=== PATIENT | female | born 1985 | race Caucasian/White ===

== ENCOUNTER → 2016-03-11 | Outpatient (REF) | payer OTHER ==
[~2016-03-11] MED LIST: ACET50TA PO; IBUP600T26 PO; PRENTAB74 PO; motrin PO; tylenol PO
== END ==
LOC: M LAB REF 17:10
PROVIDERS: ATTEND Obstetrics & Gynecology
DX: R87.612 Low grade squamous intraepithelial lesion on cytologic smear of cervix (LGSIL) (principal)

== ENCOUNTER → 2016-04-15 | Outpatient (REF) | payer MEDICAID, OTHER | LOC: M LAB REF 17:12 | PROVIDERS: ATTEND Obstetrics & Gynecology | DX: N87.0 Mild cervical dysplasia (principal) ==

== ENCOUNTER → 2016-06-24 | Outpatient (CLI) | payer OTHER ==
--- NOTE | 2016-06-24 11:16 | REP ---
Clinical: Pain. Technique: AP, lateral, bilateral oblique and sunrise views right knee . Findings: The osseous structures and joint spaces are intact and normal. There is no evidence for acute fracture or dislocation. No joint effusion is appreciated. Surrounding soft tissues are unremarkable. No subcutaneous emphysema or radiodense foreign body. Impression: No obvious acute abnormality. Signed by Dutch Roberto MD 06/24/2016 11:08 A
== END ==
LOC: M WUC 10:54
PROVIDERS: ATTEND Nurse Practitioner Family
DX: M25.561 Pain in right knee (principal)

== ENCOUNTER → 2017-04-23 | Outpatient (REF) | payer OTHER | LOC: M LAB REF 18:46 | DX: Z12.4 Encounter for screening for malignant neoplasm of cervix (principal); R87.612 Low grade squamous intraepithelial lesion on cytologic smear of cervix (LGSIL) ==

== ENCOUNTER → 2017-09-18 | Outpatient (CLI) | payer OTHER ==
[2017-09-18 11:07] LABS: ALBUMIN 3.5 GM/DL (3.2-5.2); ALBUMIN/GLOBULIN RATIO 0.97 (1.00-1.93); ALKALINE PHOSPHATASE 108 U/L (45-117); ALT/SGPT 44 U/L (12-78); ANION GAP 6 MEQ/L (8-16); AST/SGOT 27 U/L (7-37); BILIRUBIN,TOTAL 0.4 MG/DL (0.2-1.0); BLOOD UREA NITROGEN 11 MG/DL (7-18); CALCIUM LEVEL 9.2 MG/DL (8.5-10.1); CARBON DIOXIDE LEVEL 29 MEQ/L (21-32); CHLORIDE LEVEL 107 MEQ/L (98-107); CREATININE FOR GFR 0.79 MG/DL (0.55-1.30); GLOMERULAR FILTRATION RATE > 60.0 (>60); GLUCOSE, FASTING 91 MG/DL (70-100); POTASSIUM SERUM 4.3 MEQ/L (3.5-5.1); SODIUM LEVEL 142 MEQ/L (136-145); TOTAL PROTEIN 7.1 GM/DL (6.4-8.2)
== END ==
LOC: M LAB 10:13
DX: Z00.00 Encounter for general adult medical examination without abnormal findings (principal)
CPT/HCPCS: 80053

== ENCOUNTER → 2018-01-15 | Outpatient (CLI) | payer OTHER | LOC: M RAD 08:50 | DX: R10.2 Pelvic and perineal pain (principal) | CPT/HCPCS: 76856 ==

== ENCOUNTER → 2018-03-08 | Outpatient (REF) | payer OTHER ==
[~2018-03-08] MED LIST changes: -ACET50TA PO; +IBUP-1022 PO; -IBUP600T26 PO; +MAPA500T2 PO
== END ==
LOC: M LAB REF 17:56
PROVIDERS: ATTEND Advanced Practice Midwife
DX: R30.0 Dysuria (principal)

== ENCOUNTER → 2018-05-04 | Outpatient (REF) | payer OTHER ==
[2018-05-06 14:21] LABS: HPV HYBRID CAPTURE II Negative (Negative)
== END ==
LOC: M LAB REF 14:47
PROVIDERS: ATTEND Obstetrics & Gynecology
DX: Z12.4 Encounter for screening for malignant neoplasm of cervix (principal)

== ENCOUNTER 2018-09-25 18:22 | Emergency (ER) | payer OTHER ==
[~2018-09-25] VITALS: Ht 154.9 cm; Wt 79.4 kg
[2018-09-25 18:59] LABS: BASO % 0.2 % (0.0-1.0); EOS # 0.2 10^3/uL (0.0-0.50); EOS % 2.1 % (0.0-3.0); HEMATOCRIT 39.5 % (36.0-47.0); HEMOGLOBIN 13.8 g/dl (12.0-15.5); LYMPH # 2.8 10^3/uL (1.5-4.5); LYMPH % 25.2 % (24.0-44.0); MEAN CORPUSCULAR HEMOGLOBIN 31.5 pg (27.0-33.0); MEAN CORPUSCULAR HGB CONC 34.9 g/dl (32.0-36.5); MEAN CORPUSCULAR VOLUME 90.2 fl (80.0-96.0); MONO # 0.8 10^3/uL (0.0-0.8); MONO % 7.1 % (0.0-5.0); NEUTROPHILS # 7.3 10^3/uL (1.8-7.7); PLATELET COUNT, AUTOMATED 247 10^3/uL (150-450); RED BLOOD COUNT 4.38 10^6/uL (4.00-5.40); WHITE BLOOD COUNT 11.2 10^3/uL (4.0-10.0)
[2018-09-25 19:31] LABS: ALBUMIN 3.7 GM/DL (3.2-5.2); ALT/SGPT 43 U/L (12-78); BILIRUBIN,DIRECT < 0.1 MG/DL (0.0-0.2); BILIRUBIN,TOTAL 0.1 MG/DL (0.2-1.0); BLOOD UREA NITROGEN 7 MG/DL (7-18); CALCIUM LEVEL 9.9 MG/DL (8.5-10.1); CARBON DIOXIDE LEVEL 28 MEQ/L (21-32); CHLORIDE LEVEL 106 MEQ/L (98-107); CREATININE FOR GFR 0.88 MG/DL (0.55-1.30); GLOMERULAR FILTRATION RATE > 60.0 (>60); GLUCOSE, FASTING 121 MG/DL (70-100); LIPASE 148 U/L (73-393); POTASSIUM SERUM 4.3 MEQ/L (3.5-5.1); SODIUM LEVEL 141 MEQ/L (136-145); TOTAL PROTEIN 7.2 GM/DL (6.4-8.2)
[2018-09-25 19:32] LABS: HCG, SERUM QUALITATIVE NEGATIVE (NEGATIVE)
[2018-09-25] MEDS ORDERED: ISOVUE-370 76% 100ML VIAL (Q9967) As Ordered ONE (20:48)
--- NOTE | 2018-09-25 22:15 | REPVR ---
EXAM: CT Abdomen and Pelvis With Contrast EXAM DATE/TIME: 09/25/2018 9:32 PM CLINICAL HISTORY: 33 years old, female; Abdominal pain; Localized; Left lower quadrant (llq); Additional info: Llq pain R/O abscess TECHNIQUE: Imaging protocol: Axial computed tomography images of the abdomen and pelvis with intravenous contrast. Coronal and sagittal reformatted images were created and reviewed. Radiation optimization: All CT scans at this facility use at least one of these dose optimization techniques: automated exposure control; mA and/or kV adjustment per patient size (includes targeted exams where dose is matched to clinical indication); or iterative reconstruction. Contrast material: ISOVUE 370;Contrast volume: 100 ml;Contrast route: IV; COMPARISON: CT ABD PELVIS W/O CONTRAST 08/13/2014 11:21 PM FINDINGS: Liver: Again noted is hepatic parenchymal hypoattenuation which is most likely secondary to fatty infiltration. Gallbladder and bile ducts: No calcified stones. No ductal dilation. Pancreas: No ductal dilation. Spleen: No splenomegaly. Adrenals: No mass. Kidneys and ureters: No hydronephrosis. Stomach and bowel: No evidence of obstruction. Descending and sigmoid colon diverticulosis. No CT evidence of active diverticulitis. Appendix: No evidence of appendicitis. Intraperitoneal space: No free air. No significant fluid collection. Vasculature: No abdominal aortic aneurysm. Lymph nodes: No enlarged lymph nodes. Bladder: Unremarkable as visualized. Reproductive: Approximately 3.0 x 3.2 cm left ovarian cyst. Bones/joints: No acute fractures or dislocations. Soft tissues: Unremarkable. IMPRESSION: Descending and sigmoid colon diverticulosis without definite evidence of active diverticulitis. Please correlate clinically. No bowel obstruction, free intraperitoneal air/fluid or sizable inflammatory collections noted. Hepatic steatosis. Approximately 3 cm left ovarian cyst. Electronically signed by: Fransisco Goodrich On 09/25/2018 22:14:49 PM
[2018-09-25 22:35] LABS: CHLAMYDIA DNA AMPLIFICATION NEGATIVE (NEGATIVE); GC DNA AMPLIFICATION NEGATIVE (NEGATIVE)
[2018-09-25] MEDS ORDERED: CIPR-249 PO (22:57)
[2018-09-25] MEDS ORDERED: FLAG500T PO (22:57)
[2018-09-25] MEDS ORDERED: CIPROFLOXACIN 500 MG TAB PO ONE (23:00)
[2018-09-25] MEDS ORDERED: metroNIDAZOLE (FLAGYL) 500 MG TAB PO ONE (23:00)
[2018-09-25 23:03] VITALS: BP 163/93
--- NOTE | 2018-09-26 00:38 | ED PDOC ---
Post-Departure Follow-Up AT APPROXIMATELY [address] ZACARIAS RN ASKED THIS PROVIDER WHETHER THE PATIENT, WHO HAD BEEN PLACED IN DISCHARGE STATUS WAS TO BE SENT HOME WITH ANTIBIOTICS. AT THAT POINT IT WAS DETERMINED THAT PRESCRIPTIONS FOR CIPRO AND METRONIDAZOLE WHICH WERE INTENDED TO BE ADMINISTERED ONE DOSE OF EACH IN THE ED AND ONE DOSE SENT HOME (THE PATIENT HAD EXPRESSED CONCERN THAT SHE WOULD NOT BE ABLE TO FILL RX AT HER PHARMACY PRIOR TO GOING TO WORK THE FOLLOWING MORNING SINCE IT IS A THURSDAY), WERE INSTEAD ADMINISTERED TWO DOSES OF EACH MEDICATION IN THE ED (I.E. PATIENT RECEIVED CIPRO 1000MG AND METRONIDAZOLE 1000MG IN THE ED). MR. ZACARIAS CONTACTED THE PHARMACIST TO DISCUSS THE EVENT AND DETERMINE WHETHER ANY MONITORING FOR ADVERSE EVENTS WAS NECESSARY. PROVIDER WAS ADVISED NO MONITORING WAS NECESSARY AND PATIENT MAY RESUME DOSING PRESCRIBED WHEN ABLE TO FILL THE PRESCRIPTIONS THE FOLLOWING DAY. NO ADVERSE EFFECTS WERE NTOED PRIOR TO PATIENT'S DEPARTURE FROM ED. Sirena Sims PA-C Sep 26, 2018 00:38
== END 2018-09-25 23:15 | disposition home or self-care (01) ==
LOC: M ED 18:22
DX: K57.30 Diverticulosis of large intestine without perforation or abscess without bleeding (principal); R10.32 Left lower quadrant pain; G43.909 Migraine, unspecified, not intractable, without status migrainosus; K76.0 Fatty (change of) liver, not elsewhere classified; N83.292 Other ovarian cyst, left side; Z79.899 Other long term (current) drug therapy; Z88.0 Allergy status to penicillin
CPT/HCPCS: 74177; 80048; 80076; 81001; 83690; 84703; 85025; 87661; 99284; Q9967

== ENCOUNTER → 2018-10-07 | Outpatient (CLI) | payer OTHER ==
[~2018-10-07] MED LIST changes: +CIPR-249 PO; +CIPR500T3 PO; +FLAG500T PO; +MICR1TAB18 PO; +MULTCAP PO; +OMEP-221 PO
[2018-10-07 13:40] LABS: FREE T4 0.98 NG/DL (0.76-1.46); THYROID STIMULATING HORMONE 1.88 uIU/ML (0.358-3.740)
== END ==
LOC: M WUC 09:25
PROVIDERS: ATTEND Physician Assistant
DX: R53.83 Other fatigue (principal)

== ENCOUNTER → 2018-12-07 | Outpatient (REF) | payer OTHER | LOC: M LAB REF 17:07 | PROVIDERS: ATTEND Physician Assistant | DX: N39.0 Urinary tract infection, site not specified (principal) ==

== ENCOUNTER 2018-12-16 07:59 | Day surgery (SDC) | payer OTHER ==
[~2018-12-16] VITALS: Ht 157.5 cm; Wt 81.6 kg
[~2018-12-16 07:59] MED LIST changes: +LR 1,000 ML IV ONE
[2018-12-16] MEDS ORDERED: LIDOCAINE W/EPINEPHRINE 1% 20ML VIAL As Ordered ONE (09:08)
[2018-12-16] MEDS ORDERED: BUPIVACAINE/EPIN 0.5% 30 ML VIAL As Ordered ONE (09:09)
[2018-12-16] MEDS ORDERED: PROPOFOL 200 MG/20 ML VIAL As Ordered ONE (10:10)
[2018-12-16] MEDS ORDERED: SUGAMMADEX SODIUM 500 MG/5 ML VIAL (BRIDION) As Ordered ONE (10:10)
[2018-12-16] MEDS ORDERED: LIDOCAINE 2% INJ 100 MG/5 ML SDV (FOR ANES.) As Ordered ONE (10:10)
[2018-12-16] MEDS ORDERED: MIDAZOLAM INJ 2 MG/2 ML VIAL (J2250) As Ordered ONE (10:10)
[2018-12-16] MEDS ORDERED: ROCURONIUM BROMIDE 50 MG/5 ML VIAL As Ordered ONE (10:10)
[2018-12-16] MEDS ORDERED: fentaNYL 100 MCG/2 ML INJECTION (J3010) As Ordered ONE (10:10)
[2018-12-16] MEDS ORDERED: dexameTHASONE 4 MG/ML 1ML VIAL (J1100) As Ordered ONE (10:10)
[2018-12-16] MEDS ORDERED: ONDANSETRON 4MG/2ML VIAL (J2405) As Ordered ONE ×2 (10:10→11:36)
[2018-12-16] MEDS ORDERED: GLYCOPYRROLATE INJ 0.2 MG/ML 2 ML VIAL As Ordered ONE (11:10)
[2018-12-16] MEDS ORDERED: NEOSTIGMINE 10 MG/10 ML VIAL (J2710) As Ordered ONE (11:11)
--- NOTE | 2018-12-16 11:22 | RO ---
DATE OF PROCEDURE: 12/16/2018 PREOPERATIVE DIAGNOSIS: Chronic tonsillitis. POSTOPERATIVE DIAGNOSIS: Chronic tonsillitis. PROCEDURE: Tonsillectomy. SURGEON: Delvis Fonseca MD STOCK TAKER: ANESTHESIA: DESCRIPTION OF PROCEDURE: Under general anesthesia, with the patient intubated, a Burns-Vazquez mouth gag was inserted. The tonsillar area was infiltrated with lidocaine with epinephrine and Marcaine. Using cautery then, I dissected the tonsil free from its bed on both sides. The base and apex and others areas were cauterized. Minimal blood loss. The patient tolerated the procedure well and was transferred to the recovery room in excellent condition.
[2018-12-16] MEDS ORDERED: NORCO, ANEXSIA 5/325MG TABLET (HYDROcodone/ACETAMINOPHEN) PO PRN (11:45)
[2018-12-16] MEDS ORDERED: LR 1,000 ML IV SCH ×2 (11:45)
[2018-12-16] MEDS ORDERED: fentaNYL 100 MCG/2 ML INJECTION (J3010) IV PRN (11:45)
[2018-12-16] MEDS ORDERED: ONDANSETRON 4MG/2ML VIAL (J2405) IV PRN (11:45)
[2018-12-16] MEDS: oxyCODONE 5MG TAB PO PRN ×2 (12:05→12:34)
[2018-12-16 13:36] VITALS: BP 135/93
== END 2018-12-16 13:58 | disposition home or self-care (01) ==
LOC: M SDC 07:59
PROVIDERS: ATTEND Otolaryngology
DX: J35.01 Chronic tonsillitis (principal); K57.30 Diverticulosis of large intestine without perforation or abscess without bleeding; R51 Headache; Z88.0 Allergy status to penicillin; Z87.440 Personal history of urinary (tract) infections; Z79.3 Long term (current) use of hormonal contraceptives
CPT/HCPCS: 42826; 81025; 88302; J1100; J2250; J2405; J2710; J3010

== ENCOUNTER → 2018-12-24 | Outpatient (REF) | payer OTHER ==
[~2018-12-24] MED LIST changes: -LR 1,000 ML IV ONE
== END ==
LOC: M LAB REF 17:21
PROVIDERS: ATTEND Physician Assistant
DX: D22.5 Melanocytic nevi of trunk (principal)

== ENCOUNTER 2019-04-25 23:32 | Emergency (ER) | payer OTHER ==
[~2019-04-25] VITALS: Ht 154.9 cm; Wt 84.9 kg
[2019-04-26 00:23] LABS: BASO % 0.2 % (0.0-1.0); EOS # 0.1 10^3/uL (0.0-0.5); EOS % 1.1 % (0.0-3.0); HEMATOCRIT 41.8 % (36.0-47.0); HEMOGLOBIN 14.3 g/dl (12.0-15.5); LYMPH # 2.8 10^3/uL (1.5-5.0); LYMPH % 27.4 % (24.0-44.0); MEAN CORPUSCULAR HEMOGLOBIN 30.9 pg (27.0-33.0); MEAN CORPUSCULAR HGB CONC 34.2 g/dl (32.0-36.5); MEAN CORPUSCULAR VOLUME 90.3 fl (80.0-96.0); MONO # 0.8 10^3/uL (0.0-0.8); MONO % 7.7 % (0.0-5.0); NEUTROPHILS # 6.4 10^3/uL (1.5-8.5); NEUTROPHILS % 63.1 % (36.0-66.0); PLATELET COUNT, AUTOMATED 273 10^3/uL (150-450); RED BLOOD COUNT 4.63 10^6/uL (4.00-5.40); WHITE BLOOD COUNT 10.2 10^3/uL (4.0-10.0)
[2019-04-26 00:49] LABS: ALBUMIN 3.6 GM/DL (3.2-5.2); ALT/SGPT 21 U/L (12-78); BILIRUBIN,DIRECT < 0.1 MG/DL (0.0-0.2); BILIRUBIN,TOTAL 0.3 MG/DL (0.2-1.0); HCG, SERUM QUANTITATIVE 429 MIU/ML; LIPASE 106 U/L (73-393); TOTAL PROTEIN 7.4 GM/DL (6.4-8.2)
[2019-04-26] MEDS ORDERED: ONDANSETRON 4MG/2ML VIAL (J2405) IV ONE (01:15)
[2019-04-26] MEDS ORDERED: MORPHINE 4 MG/ML 1ML VIAL/SYRINGE (J2270) IV PRN (01:15)
--- NOTE | 2019-04-26 02:44 | REPVR ---
PROCEDURE INFORMATION: Exam: US First Trimester, Transabdominal Exam date and time: 04/26/2019 2:15 AM Age: 33 years old Clinical indication: complicated by abdominal or pelvic pain; Right lower quadrant; First trimester; Gestational age or lmp: Lmp 03/04/19; ; Prior surgery; Surgery date: 6+ months; Surgery type: Lt tube removed for ectopic; Additional info: Rlq pain, positive test TECHNIQUE: Imaging protocol: Real-time transabdominal obstetrical ultrasound of the maternal pelvis and a first trimester , less than 14 weeks 0 days, with image documentation. COMPARISON: No relevant prior studies available. FINDINGS: GESTATION: Gestation: No intrauterine gestational sac. MATERNAL: Uterus: The uterus measures 7.7 cm in its cephalocaudad dimension and 3.8 x 5.2 cm in its AP and lateral dimensions transabdominal. The uterus measures 7.6 cm in its cephalocaudad dimension and 4.1 x 5.2 cm in its AP and lateral dimensions transvaginal. The endometrium measures 9 mm. Cervix: Unremarkable. Right adnexa: The right ovary measures 1.6 x 2.7 x 2.4 cm and demonstrates normal blood flow. There is question of a rounded echogenic focus in the right adnexa measuring 14 mm. Left adnexa: The left ovary measures 2.8 x 3.2 x 2.2 cm and demonstrates a small follicle measuring up to 14 mm. There is left ovarian blood flow. Intraperitoneal: No significant intraperitoneal free fluid. IMPRESSION: 1. No intrauterine gestational sac is identified. Findings may reflect recent spontaneous AB. Ectopic is not excluded. Serial beta hCG levels may be of benefit for further evaluation. 2. There is a rounded echogenic area in the right adnexa measuring 14 mm. If beta hCG levels persist, this may serve as a site of potential ectopic. Electronically signed by: Emeka Gomez On 04/26/2019 02:43:34 AM
[2019-04-26] MEDS ORDERED: LARI1TAB7 PO (04:07)
[2019-04-26] MEDS ORDERED: TIZA2TAB4 PO (04:07)
[2019-04-26] MEDS ORDERED: MELO15TA28 PO (04:07)
[2019-04-26] MEDS: NS 1,000 ML IV SCH ×2 (04:12→04:16)
[2019-04-26 04:27] LABS: BLOOD UREA NITROGEN 10 MG/DL (7-18); CALCIUM LEVEL 9.5 MG/DL (8.5-10.1); CARBON DIOXIDE LEVEL 27 MEQ/L (21-32); CHLORIDE LEVEL 105 MEQ/L (98-107); CREATININE FOR GFR 0.89 MG/DL (0.55-1.30); GLOMERULAR FILTRATION RATE > 60.0 (>60); GLUCOSE, FASTING 97 MG/DL (70-100); POTASSIUM SERUM 3.8 MEQ/L (3.5-5.1); SODIUM LEVEL 138 MEQ/L (136-145)
[2019-04-26 06:37] VITALS: BP 112/68
== END 2019-04-26 06:58 | disposition home or self-care (01) ==
LOC: M ED 23:32
DX: O26.891 Other specified pregnancy related conditions, first trimester (principal); R10.9 Unspecified abdominal pain; O21.9 Vomiting of pregnancy, unspecified; O99.611 Diseases of the digestive system complicating pregnancy, first trimester; K57.90 Diverticulosis of intestine, part unspecified, without perforation or abscess without bleeding; Z3A.00 Weeks of gestation of pregnancy not specified; Z88.0 Allergy status to penicillin; Z79.899 Other long term (current) drug therapy
CPT/HCPCS: 76801; 76817; 80048; 80076; 81001; 83690; 84702; 85025; 93976; 96361; 96374; 96375; 99284; J2270; J2405

== ENCOUNTER → 2019-04-28 | Outpatient (CLI) | payer OTHER ==
[~2019-04-28] MED LIST changes: +LARI1TAB7 PO; +MELO15TA28 PO; +TIZA2TAB4 PO
[2019-04-28 10:34] LABS: HEMATOCRIT 41.8 % (36.0-47.0); MEAN CORPUSCULAR HEMOGLOBIN 31.5 pg (27.0-33.0); MEAN CORPUSCULAR HGB CONC 33.5 g/dl (32.0-36.5); MEAN CORPUSCULAR VOLUME 94.1 fl (80.0-96.0); PLATELET COUNT, AUTOMATED 255 10^3/uL (150-450); RED BLOOD COUNT 4.44 10^6/uL (4.00-5.40); WHITE BLOOD COUNT 7.5 10^3/uL (4.0-10.0)
[2019-04-28 10:43] LABS: ALBUMIN 3.5 GM/DL (3.2-5.2); ALT/SGPT 20 U/L (12-78); BILIRUBIN,TOTAL 0.3 MG/DL (0.2-1.0); BLOOD UREA NITROGEN 6 MG/DL (7-18); CALCIUM LEVEL 9.2 MG/DL (8.5-10.1); CARBON DIOXIDE LEVEL 28 MEQ/L (21-32); CHLORIDE LEVEL 110 MEQ/L (98-107); CREATININE FOR GFR 0.77 MG/DL (0.55-1.30); GLOMERULAR FILTRATION RATE > 60.0 (>60); GLUCOSE, FASTING 91 MG/DL (70-100); HCG, SERUM QUANTITATIVE 141 MIU/ML; POTASSIUM SERUM 4.5 MEQ/L (3.5-5.1); SODIUM LEVEL 139 MEQ/L (136-145)
== END ==
LOC: M PLALAB 08:36
PROVIDERS: ATTEND Obstetrics & Gynecology
DX: O26.899 Other specified pregnancy related conditions, unspecified trimester (principal); Z3A.00 Weeks of gestation of pregnancy not specified

== ENCOUNTER → 2019-04-30 | Outpatient (CLI) | payer OTHER ==
[2019-04-30 09:23] LABS: HEMATOCRIT 39.5 % (36.0-47.0); HEMOGLOBIN 13.3 g/dl (12.0-15.5); MEAN CORPUSCULAR HEMOGLOBIN 30.9 pg (27.0-33.0); MEAN CORPUSCULAR HGB CONC 33.7 g/dl (32.0-36.5); MEAN CORPUSCULAR VOLUME 91.9 fl (80.0-96.0); PLATELET COUNT, AUTOMATED 221 10^3/uL (150-450); WHITE BLOOD COUNT 7.1 10^3/uL (4.0-10.0)
[2019-04-30 09:47] LABS: ALBUMIN 3.4 GM/DL (3.2-5.2); ALT/SGPT 16 U/L (12-78); BILIRUBIN,TOTAL 0.4 MG/DL (0.2-1.0); BLOOD UREA NITROGEN 11 MG/DL (7-18); CALCIUM LEVEL 8.7 MG/DL (8.5-10.1); CARBON DIOXIDE LEVEL 29 MEQ/L (21-32); CHLORIDE LEVEL 108 MEQ/L (98-107); CREATININE FOR GFR 0.86 MG/DL (0.55-1.30); GLOMERULAR FILTRATION RATE > 60.0 (>60); GLUCOSE, FASTING 95 MG/DL (70-100); HCG, SERUM QUANTITATIVE 126 MIU/ML; POTASSIUM SERUM 3.9 MEQ/L (3.5-5.1); SODIUM LEVEL 140 MEQ/L (136-145); TOTAL PROTEIN 6.7 GM/DL (6.4-8.2)
== END ==
LOC: M LAB 08:39
PROVIDERS: ATTEND Obstetrics & Gynecology
DX: O03.4 Incomplete spontaneous abortion without complication (principal)

== ENCOUNTER 2019-05-05 18:47 | Emergency (ER) | payer OTHER ==
[~2019-05-05] VITALS: Ht 154.9 cm; Wt 81.8 kg
[2019-05-05 18:48] VITALS: BP 133/69
[2019-05-05] MEDS ORDERED: SULF1TAB93 (18:55)
[2019-05-05] MEDS ORDERED: TIZA2TA (18:55)
[2019-05-05] MEDS ORDERED: IBUP80TA (18:55)
[2019-05-05] MEDS ORDERED: LIDOCAINE 5% (LIDODERM) PATCH TD ONE (19:30)
[2019-05-05] MEDS ORDERED: ACETAMINOPHEN 500 MG TAB PO ONE (19:30)
[2019-05-05] MEDS ORDERED: **NOTE PATIENT COMMENT** MISC XX SCH (21:00)
== END 2019-05-05 20:28 | disposition home or self-care (01) ==
LOC: M ED 18:47
DX: S39.012A Strain of muscle, fascia and tendon of lower back, initial encounter (principal); X50.9XXA Other and unspecified overexertion or strenuous movements or postures, initial encounter; Y92.098 Other place in other non-institutional residence as the place of occurrence of the external cause; M54.9 Dorsalgia, unspecified; G89.29 Other chronic pain; Z88.0 Allergy status to penicillin; Z79.899 Other long term (current) drug therapy; Z79.2 Long term (current) use of antibiotics

== ENCOUNTER → 2019-07-29 | Outpatient (REF) | payer OTHER ==
[~2019-07-29] MED LIST changes: +IBUP80TA; +SULF1TAB93; +TIZA2TA; -TIZA2TAB4 PO; +TIZA2TAB6 PO
== END ==
LOC: M SFHCWAGY 17:31
PROVIDERS: ATTEND Obstetrics & Gynecology
DX: Z01.419 Encounter for gynecological examination (general) (routine) without abnormal findings (principal); Z12.4 Encounter for screening for malignant neoplasm of cervix

== ENCOUNTER → 2020-04-12 | Outpatient (REF) | payer OTHER ==
[~2020-04-12] MED LIST changes: +TIZA1TAB12 PO; -TIZA2TAB6 PO
[2020-04-12 13:41] LABS: HEMATOCRIT 40.1 % (36.0-47.0); HEMOGLOBIN 13.3 g/dl (12.0-15.5); MEAN CORPUSCULAR HEMOGLOBIN 30.8 pg (27.0-33.0); MEAN CORPUSCULAR HGB CONC 33.2 g/dl (32.0-36.5); MEAN CORPUSCULAR VOLUME 92.8 fl (80.0-96.0); PLATELET COUNT, AUTOMATED 233 10^3/uL (150-450); RED BLOOD COUNT 4.32 10^6/uL (4.00-5.40); WHITE BLOOD COUNT 9.1 10^3/uL (4.0-10.0)
[2020-04-12 15:39] LABS: HEPATITIS C VIRUS ABY INDEX < 0.0 INDEX (<0.8); HIV 1&2 SCREEN CENTAUR NEGATIVE (NEGATIVE)
== END ==
LOC: M PLALAB 11:30
PROVIDERS: ATTEND Obstetrics & Gynecology
DX: Z34.91 Encounter for supervision of normal pregnancy, unspecified, first trimester (principal)

== ENCOUNTER → 2020-05-22 | Outpatient (CLI) | payer OTHER | LOC: M PLALAB 14:57 | PROVIDERS: ATTEND Obstetrics & Gynecology | DX: Z36.89 Encounter for other specified antenatal screening (principal); Z34.82 Encounter for supervision of other normal pregnancy, second trimester ==

== ENCOUNTER 2020-06-21 12:49 | Emergency (ER) | payer OTHER ==
[~2020-06-21] VITALS: Ht 154.9 cm; Wt 84.0 kg
[~2020-06-21 12:49] MED LIST changes: +BACTDSTA; +OXYC1TAB23 PO; -SULF1TAB93
[2020-06-21] MEDS ORDERED: PRENTAB53 PO (12:57)
[2020-06-21] MEDS ORDERED: OMEP-221 (12:57)
[2020-06-21] MEDS ORDERED: NS 1,000 ML IV ONE (15:05)
[2020-06-21] MEDS ORDERED: PERCOCET 5MG/325MG TAB PO ONE (15:05)
[2020-06-21 15:35] LABS: BASO % 0.2 % (0.0-1.0); EOS # 0.1 10^3/uL (0.0-0.5); EOS % 0.4 % (0.0-3.0); HEMATOCRIT 36.5 % (36.0-47.0); HEMOGLOBIN 12.3 g/dl (12.0-15.5); LYMPH # 2.1 10^3/uL (1.5-5.0); MEAN CORPUSCULAR HEMOGLOBIN 31.2 pg (27.0-33.0); MEAN CORPUSCULAR HGB CONC 33.7 g/dl (32.0-36.5); MEAN CORPUSCULAR VOLUME 92.6 fl (80.0-96.0); MONO # 0.7 10^3/uL (0.0-0.8); MONO % 5.6 % (2.0-8.0); NEUTROPHILS # 9.6 10^3/uL (1.5-8.5); NEUTROPHILS % 76.1 % (36.0-66.0); PLATELET COUNT, AUTOMATED 230 10^3/uL (150-450); RED BLOOD COUNT 3.94 10^6/uL (4.00-5.40); WHITE BLOOD COUNT 12.6 10^3/uL (4.0-10.0)
--- NOTE | 2020-06-21 15:38 | REP ---
INDICATION: left pelvic/abd pain COMPARISON: None. TECHNIQUE: Limited transabdominal obstetrical ultrasound with color Doppler evaluation. FINDINGS: Examination demonstrates a single live intrauterine in cephalic presentation. motion is identified by technologist. Placenta is noted posterior and grade 1 without evidence for placenta previa or abruption. Amniotic fluid volume is normal. Cervix appears closed. Gestational age by LMP 18 weeks 2 days. FHR equals 160 beats per minute. IMPRESSION: No gross abnormalities appreciated. <Electronically signed by Dutch Roberto > 06/21/20 [id number]
[2020-06-21 16:03] LABS: ALT/SGPT 13 U/L (12-78); BILIRUBIN,DIRECT < 0.1 MG/DL (0.0-0.2); BILIRUBIN,TOTAL 0.3 MG/DL (0.2-1.0); BLOOD UREA NITROGEN 4 MG/DL (7-18); CALCIUM LEVEL 9.2 MG/DL (8.5-10.1); CARBON DIOXIDE LEVEL 29 MEQ/L (21-32); CHLORIDE LEVEL 106 MEQ/L (98-107); CREATININE FOR GFR 0.52 MG/DL (0.55-1.30); GLOMERULAR FILTRATION RATE > 60.0 (>60); GLUCOSE, FASTING 77 MG/DL (70-100); LIPASE 70 U/L (73-393); POTASSIUM SERUM 3.7 MEQ/L (3.5-5.1); SODIUM LEVEL 139 MEQ/L (136-145); TOTAL PROTEIN 6.5 GM/DL (6.4-8.2)
[2020-06-21 17:08] VITALS: BP 116/59
[2020-06-21 17:08] LABS: AMORPHOUS SEDIMENT SMALL (NEGATIVE); APPEARANCE, URINE CLOUDY (CLEAR); BACTERIA, URINE AUTO NEGATIVE (NEGATIVE); BILIRUBIN, URINE AUTO NEGATIVE (NEGATIVE); BLOOD, URINE BLOOD NEGATIVE (NEGATIVE); COLOR, URINE YELLOW (YELLOW); GLUCOSE, URINE (UA) AUTO NEGATIVE (NEGATIVE); KETONE, URINE AUTO NEGATIVE (NEGATIVE); LEUKOCYTE ESTERASE, URINE AUTO TRACE (NEGATIVE); MUCUS, URINE SMALL (NEGATIVE); NITRITE, URINE AUTO NEGATIVE (NEGATIVE); PROTEIN, URINE AUTO NEGATIVE (NEGATIVE); RBC, URINE AUTO 1 /HPF (0-3); SPECIFIC GRAVITY URINE AUTO 1.009 (1.002-1.035); SQUAMOUS EPITHELIAL CELL UR AU 6 /HPF (0-6); UROBILINOGEN, URINE AUTO 0.2 mg/dL (0.0-2.0); WBC, URINE AUTO 4 /HPF (0-3)
== END 2020-06-21 17:13 | disposition home or self-care (01) ==
LOC: M ED 12:49
DX: O26.892 Other specified pregnancy related conditions, second trimester (principal); O99.612 Diseases of the digestive system complicating pregnancy, second trimester; Z3A.18 18 weeks gestation of pregnancy; Z87.59 Personal history of other complications of pregnancy, childbirth and the puerperium; Z88.0 Allergy status to penicillin

== ENCOUNTER → 2020-07-05 | Outpatient (CLI) | payer OTHER ==
[~2020-07-05] MED LIST changes: +OMEP-221; +PRENTAB53 PO
--- NOTE | 2020-07-05 16:08 | REP ---
INDICATION: ANATOMY COMPARISON: 06/21/2020 TECHNIQUE: Transabdominal obstetrical ultrasound with color Doppler evaluation. FINDINGS: Examination demonstrates a single live intrauterine in cephalic presentation. motion is identified by technologist. Placenta is noted posterior and grade 1 without evidence for placenta previa or abruption. Amniotic fluid volume is normal. Cervix measures 3.4 cm in length and appears closed.. Gestational age by LMP and 1st U/S 20 weeks 2 days with NBA 11/20/2020. Gestational age by current measurements 20 weeks 2 days with NBA 11/20/2020. FHR equals 152 beats per minute. Estimated weight 353 grams. Anatomical assessment demonstrates normal structures including cranium, choroid plexus, cavum, cerebellum/posterior fossa, facial features, lungs, four-chamber heart/ventricular outflow tracts, diaphragm, stomach, cord insertion/three-vessel cord, kidneys/bladder, spine, and extremities. IMPRESSION: Single live intrauterine in cephalic presentation. Anatomical assessment is complete and normal. No gross abnormalities are identified. <Electronically signed by Dutch Roberto > 07/05/20 [id number]
== END ==
LOC: M RAD 14:48
PROVIDERS: ATTEND Obstetrics & Gynecology
DX: Z36.9 Encounter for antenatal screening, unspecified (principal); Z3A.20 20 weeks gestation of pregnancy

== ENCOUNTER → 2020-08-23 | Outpatient (CLI) | payer OTHER ==
[2020-08-23 11:04] LABS: HEMATOCRIT 36.5 % (36.0-47.0); HEMOGLOBIN 11.9 g/dl (12.0-15.5); MEAN CORPUSCULAR HEMOGLOBIN 31.2 pg (27.0-33.0); MEAN CORPUSCULAR HGB CONC 32.6 g/dl (32.0-36.5); MEAN CORPUSCULAR VOLUME 95.5 fl (80.0-96.0); PLATELET COUNT, AUTOMATED 231 10^3/uL (150-450); RED BLOOD COUNT 3.82 10^6/uL (4.00-5.40)
== END ==
LOC: M PLALAB 08:08
PROVIDERS: ATTEND Obstetrics & Gynecology
DX: Z34.82 Encounter for supervision of other normal pregnancy, second trimester (principal); Z3A.00 Weeks of gestation of pregnancy not specified

== ENCOUNTER → 2020-09-07 | Outpatient (CLI) | payer OTHER | LOC: M LAB 07:11 | PROVIDERS: ATTEND Obstetrics & Gynecology | DX: Z36.89 Encounter for other specified antenatal screening (principal) ==

== ENCOUNTER 2020-09-13 11:25 | Outpatient (CLI) | payer OTHER ==
[~2020-09-13] VITALS: Ht 154.9 cm; Wt 90.0 kg
[~2020-09-13 11:25] MED LIST changes: -OMEP-221; -OMEP-221 PO; +OMEP40CA5 PO
[2020-09-13 11:35] VITALS: BP 137/76
[2020-10-31] MEDS ORDERED: ACET-897 PO (14:27)
[2020-12-18] MEDS ORDERED: DEBL1TAB PO (14:27)
[2020-12-18] MEDS ORDERED: OMEP40CA4 PO (14:27)
== END 2020-09-13 13:25 | disposition home or self-care (01) ==
LOC: M LDO 11:25
PROVIDERS: ATTEND Obstetrics & Gynecology
DX: O9A.23 Injury, poisoning and certain other consequences of external causes complicating the puerperium (principal); S30.1XXA Contusion of abdominal wall, initial encounter; Z3A.30 30 weeks gestation of pregnancy; O36.8130 Decreased fetal movements, third trimester, not applicable or unspecified; W22.03XA Walked into furniture, initial encounter; Y92.9 Unspecified place or not applicable

== ENCOUNTER → 2020-10-24 | Outpatient (REF) | payer OTHER ==
[~2020-10-24] MED LIST changes: +OMEP-221; +OMEP-221 PO; -OMEP40CA5 PO
== END ==
LOC: M SFHCWAGY 12:52
PROVIDERS: ATTEND Obstetrics & Gynecology
DX: Z36.89 Encounter for other specified antenatal screening (principal); Z3A.36 36 weeks gestation of pregnancy

== ENCOUNTER 2020-11-01 20:32 | Inpatient (IN) | payer OTHER ==
[~2020-11-01] VITALS: Ht 154.9 cm; Wt 98.2 kg
[~2020-11-01 20:32] MED LIST changes: +ACET-897 PO; -OMEP-221
[2020-11-01] MEDS ORDERED: OXYTOCIN INJ 10 UNITS/ML VIAL (J2590) IM PRN (21:25)
[2020-11-01] MEDS ORDERED: OXYTOCIN DRIP 30 UNITS in IV 1 EA IV PRN (21:25)
[2020-11-01] MEDS ORDERED: TRANEXAMIC ACID INJection 1,000 MG in NS 100 ML IV PRN (21:25)
[2020-11-01] MEDS ORDERED: CARBOPROST TROMETHAMINE 250 MCG/ML AMP IM PRN (21:25)
[2020-11-01] MEDS ORDERED: miSOPROStol 50MCG 1/2 TABLET PO SCH (21:25)
[2020-11-01] MEDS ORDERED: OXYTOCIN DRIP 30 UNITS in IV 1 EA IV SCH (21:40)
[2020-11-01] MEDS ORDERED: LR 1,000 ML IV SCH (21:40)
[2020-11-01] MEDS ORDERED: OXYTOCIN 30 UNITS IN 0.9% NaCl 500ML IV BAG (J2590) As Ordered ONE (21:40)
--- NOTE | 2020-11-01 22:03 | HPEPDOC ---
Obstetrical History & Physical General Date of Admission Nov 01, 2020 at 20:32 History of Present Illness 35yo at 37w2d presents for IOL for GHTN. Chief Complaint: Induction of labor Information Provided By: Patient Age: 35 : 6 Livin Care Care: Good Care Dating Final EDC: Nov 20, 2020 Final EDC by: LMP EGA at Admission: 37 Past Medical History Past Obstetrical History #1: Date of Delivery: June 30, 2006 Gestation: 37 Type of Delivery: Spontaneous Vaginal Del. Sex of Infant: Female Complications: No Past Obstetrical History #2: Date of Delivery: June 30, 2012 Type of Delivery: Spontaneous Vaginal Del. Sex of Infant: Female Complications: No Past Obstetrical History #3: Date of Delivery: Nov 02, 2015 Type of Delivery: Spontaneous Vaginal Del. Sex of : Female [employer] History: Spontaneous , Ectopic , Abnormal Pap Past Medical History Medical History Sebastian disease Surgical History: Tonsilectomy, Other (Left salpingectomy and bunionectomy) Social History Marital Status: Family situation: Spouse/partner home * Smoker: non-smoker Alcohol: Denies Drugs: denies Allergies Coded Allergies: walnut (Verified Allergy, Severe, 09/13/20) Penicillins (Verified Allergy, Intermediate, rash, 09/13/20) Medications Scheduled Vit,Calc76/Iron/Folic (Prenatabs Rx Tablet) 1 Each Tablet, 1 TAB PO DAILY Miscellaneous Medications Acetaminophen (Tylenol Extra Strength) 500 Mg Tablet, 500 MG PO Omeprazole (Omeprazole) 40 Mg Capsule.dr Physical Examination Physical Examination GENERAL: Alert and oriented times three. BREAST: . ABDOMEN: Gravid and non-tender to touch. FETUS: Is vertex (VTX) by sterile vaginal examination (SVE), fetus is vertex (VTX) by Abhay. HEART RATE: Regular rate and rhythm. LUNGS: Clear to auscultation (CTA). Laboratory Data 24H LABS Laboratory Tests 2 11/01/20 21:03: Serology Scanned Report Hepatitis B Testing Pertinent Laboratoy Data Blood Type: O+ RBC Antibody Screen: Negative HIV: Negative Hepatitis B: Negative Hepatitis C: Negative Rapid Plasma Reagin: Nonreactive Rubella: Immune Chlamydia/Gonorrhea: Negative Group B Streptococcus: Negative Glucose Tolerance Test: 179 (Normal 3-hour glucose tolerance test) Anatomy Ultrasound Placenta Location: Posterior Normal Anatomy: Yes Vaginal Examination Dilation: 3 cm Effacement: 70% Station: -2 Cervical Consistency: Soft Cervical Position: Anterior Presentation: Cephalic presentation Assessment Variability: Moderate Accelerations: Positive Tocometer Contractions: Yes Frequency: irregular Assessment/Plan Assessment 35-year-old 6 para 3 at 37 weeks 2 days for induction of labor for gestational hypertension Reassuring status Plan Admit and orient. Supervisory Lifeguard and consent. Group B Streptococcus (GBS) negative. Labs and intravenous (IV) per unit protocol. Counseled on Pitocin and induction of labor (IOL). Anticipate normal spontaneous delivery (). C-S as appropriate. KELLEN BRENNAN MD. Nov 01, 2020 22:03
[2020-11-01 22:53] LABS: HEMATOCRIT 37.3 % (36.0-47.0); HEMOGLOBIN 12.5 g/dl (12.0-15.5); MEAN CORPUSCULAR HEMOGLOBIN 31.3 pg (27.0-33.0); MEAN CORPUSCULAR HGB CONC 33.5 g/dl (32.0-36.5); MEAN CORPUSCULAR VOLUME 93.3 fl (80.0-96.0); PLATELET COUNT, AUTOMATED 208 10^3/uL (150-450); WHITE BLOOD COUNT 13.9 10^3/uL (4.0-10.0)
[2020-11-01] MEDS ORDERED: FENTANYL 2MCG/ML ROPIVACAINE 0.2% IN 0.9% NACL 100ML IVBAG As Ordered ONE (23:02)
[2020-11-01 23:14] LABS: ALT/SGPT 19 U/L (12-78); BILIRUBIN,TOTAL 0.2 MG/DL (0.2-1.0); CREATININE FOR GFR 0.68 MG/DL (0.55-1.30); GLOMERULAR FILTRATION RATE > 60.0 (>60); LDH LACTATE DEHYDROGENASE 206 U/L (84-246); URIC ACID 7.5 MG/DL (2.6-6.0)
[2020-11-02] VITALS (17 sets, daily range): BP systolic 128–158; BP diastolic 66–100
[2020-11-02] MEDS ORDERED: ePHEDrine SULFATE 25 MG/5 ML(5MG/ML) SYRINGE IV PRN (00:20)
[2020-11-02] MEDS ORDERED: diphenhydrAMINE 50MG/ML VIAL (J1200) IV PRN (00:20)
[2020-11-02] MEDS ORDERED: NALOXONE INJ 0.4MG/1ML VIAL (J2310 PER 1MG) IV PRN (00:20)
[2020-11-02] MEDS ORDERED: ONDANSETRON 4MG/2ML VIAL IV PRN (00:20)
[2020-11-02] MEDS ORDERED: EPIDURAL/PCA KEYS XX PRN (00:20)
[2020-11-02] MEDS ORDERED: LACTATED RINGER'S 1000 ML IV PRN (00:20)
[2020-11-02] MEDS ORDERED: FENTANYL/ROPIVACAINE/NACL BAG 100 ML EPIDURAL SCH (00:20)
[2020-11-02] MEDS ORDERED: REFRIGERATOR IV KEYS XX PRN (00:20)
[2020-11-02] MEDS ORDERED: EPIDURAL COMMENT XX SCH (00:20)
[2020-11-02] MEDS ORDERED: MOM 30ML SUSPENSION UDC PO PRN (03:15)
[2020-11-02] MEDS ORDERED: ACETAMINOPHEN 500 MG TAB PO PRN (03:15)
[2020-11-02] MEDS ORDERED: ACETAMINOPHEN TAB 650MG DOSE (2X325MG) PO PRN (03:15)
[2020-11-02] MEDS ORDERED: RHOGAM 300 MCG (1500 IU) INJ (J2790) IM SCH (03:15)
[2020-11-02] MEDS ORDERED: DIBUCAINE 1% OINTMENT 30GM TOP PRN (03:15)
[2020-11-02] MEDS ORDERED: METHYLERGONOVINE MALEATE 0.2 MG TAB PO PRN (03:15)
[2020-11-02] MEDS ORDERED: MEASLES,MUMPS,RUBELLA VACCINE INJ (MMR-II) (90707) SC SCH (03:15)
[2020-11-02] MEDS ORDERED: OXYTOCIN DRIP 30 UNITS in IV 1 EA IV SCH (03:15)
[2020-11-02] MEDS ORDERED: DOCUSATE SODIUM 100MG CAPSULE PO PRN (03:15)
[2020-11-02] MEDS ORDERED: IBUPROFEN 600MG TAB PO PRN (03:15)
[2020-11-02] MEDS ORDERED: ANUSOL HC CREAM 30GM TOP PRN (03:15)
--- NOTE | 2020-11-02 03:23 | DNPDOC ---
[facility] Delivery Note Delivery Note DATE OF DELIVERY: November 02, 2020 TIME OF : 251 GENDER: Female APGARS: 7 and 9 WEIGHT: 3040 grams or 6 pounds 11ounces. LACERATIONS: none ANESTHESIA: Epidural ESTIMATED BLOOD LOSS: 200 ml COUNTS: 5 laparotomy sponges accounted for prior to after delivery. DELIVERY NOTE: On November 02, 2020 at 0252 Mrs. Loza is a 35-year-old 6 now para 4 had spontaneous vaginal every liveborn female infant Apgars 7 and 9 weight was 3040 g 6 pounds 11 ounces. Head was delivered occiput anterior (OA).there was a left nuchal head was delivered, followed by delivery of the shoulders and corpus. Infant was handed to mom with a good cry. Cord was clamped times two and was cut by support person under my direction. Placenta was then drained and delivered grossly intact. A premixed bag of 500 mL of normal saline with 30 units of Pitocin was then bolused along with uterine massage until the uterus was firm. On inspection , cervix, vagina, perineum was grossly intact and hemostatic. Mom and baby in recovery on stable condition. Couples decided to name the daughter KELLEN Singh MD. Nov 02, 2020 03:23
[2020-11-02] MEDS: PRENATAL VITAMINS CHEWABLE TABLET PO SCH (08:40)
[2020-11-02] MEDS: IBUPROFEN 800 MG TAB PO PRN (19:35)
[2020-11-03 06:00] VITALS: BP 132/92
[2020-11-03] MEDS: PRENATAL VITAMINS CHEWABLE TABLET PO SCH (07:39)
[2020-11-03] MEDS: IBUPROFEN 800 MG TAB PO PRN (08:04)
[2020-11-03] MEDS ORDERED: ACET-683 PO (10:34)
[2020-11-03] MEDS ORDERED: IBUP-1022 PO (10:34)
[2020-11-03] MEDS ORDERED: DOCU100C16 PO (10:34)
--- NOTE | 2020-11-03 12:36 | IPNPDOC ---
Progress Note Date of Service: Nov 03, 2020 Day#: 1 Progress Note SUBJECT: Patient is a 35-year-old G 7 P 4034 status post uncomplicated vaginal delivery at 37-1/7 weeks' doing well day #1. She has been ambulating, voiding spontaneously without issue and tolerating regular diet. Breast feeding without issue. Reports lochia is like a normal period. Patient is ambulating well. Reports some cramping, well controlled with medication. Voiding and ambulating without difficulty. Denies any headaches vision changes or right upper quadrant pain. OBJECTIVE: VITAL SIGNS: Within normal limits, afebrile. Alert and oriented times three. Breath sounds clear to auscultation. Heart rate: Regular rate and rhythm, no murmurs, rubs or gallops. Abdomen: Fundus firm at U-2. Soft, NTTP. Minimal to moderate lochia. ASSESSMENT: Patient is a 35-year-old G 7 P 4034 status post uncomplicated vaginal delivery. Doing well on day 1. Vitals within normal limits, afebrile, hemodynamically stable with no evidence of infection. PLAN: 1. Discharge to home today. 2. Tylenol and Motrin for pain. 3. Encourage breast feeding and ambulation. 4. Patient desires the minipill for contraception but desires permanent sterilization with tubal ligation 5. Patient to schedule a visit in clinic for a blood pressure check in 2 weeks. Routine PP visit in 6 weeks in clinic. 6. Discussed return precautions at length. VS, I&O, 24H, Fishbone Vital Signs/I&O Vital Signs Date Time Temp Pulse Resp B/P (MAP) Pulse Ox O2 Delivery O2 Flow Rate FiO2 11/03/20 06:00 97.4 68 16 132/92 (105) 97 Room Air FLO BOX MD Nov 03, 2020 12:36
[2020-11-03] MEDS ORDERED: NORE0.353 PO (12:37)
== END 2020-11-03 12:40 | disposition home or self-care (01) | DRG 560 ==
LOC: M LDI 20:32 → M OBS 11-02 04:50
PROVIDERS: ADMIT Obstetrics & Gynecology; ATTEND Obstetrics & Gynecology
PROC: 3E033VJ Introduction of Other Hormone into Peripheral Vein, Percutaneous Approach (ICD-10-PCS; 2020-11-01)
PROC: 10E0XZZ Delivery of Products of Conception, External Approach (ICD-10-PCS; principal; 2020-11-02)
DX: O13.4 Gestational [pregnancy-induced] hypertension without significant proteinuria, complicating childbirth (principal); Z3A.37 37 weeks gestation of pregnancy; Z37.0 Single live birth; O32.8XX0 Maternal care for other malpresentation of fetus, not applicable or unspecified

== ENCOUNTER → 2020-12-26 | Outpatient (CLI) | payer OTHER ==
[~2020-12-26] MED LIST changes: +ACET-683 PO; +DEBL1TAB PO; +DOCU100C16 PO; +NORE0.353 PO; +OMEP40CA4 PO
== END ==
LOC: M LABSMTC 11:17
PROVIDERS: ATTEND Anesthesiology
DX: Z01.818 Encounter for other preprocedural examination (principal); Z11.52 Encounter for screening for COVID-19

== ENCOUNTER 2020-12-31 10:03 | Day surgery (SDC) | payer OTHER ==
[~2020-12-31] VITALS: Ht 154.9 cm; Wt 92.5 kg
[~2020-12-31 10:03] MED LIST changes: +LR 1,000 ML IV ONE; -OMEP-221 PO; +OMEP40CA5 PO
[2020-12-31 10:28] LABS: HEMATOCRIT 40.3 % (36.0-47.0); HEMOGLOBIN 13.4 g/dl (12.0-15.5); MEAN CORPUSCULAR HEMOGLOBIN 30.2 pg (27.0-33.0); MEAN CORPUSCULAR HGB CONC 33.3 g/dl (32.0-36.5); PLATELET COUNT, AUTOMATED 212 10^3/uL (150-450); RED BLOOD COUNT 4.43 10^6/uL (4.00-5.40); WHITE BLOOD COUNT 8.9 10^3/uL (4.0-10.0)
[2020-12-31] MEDS ORDERED: BUPIVACAINE HCL 0.25% 30ML VIAL As Ordered ONE (12:23)
[2020-12-31] MEDS ORDERED: MIDAZOLAM INJ 2MG/2ML VIAL (J2250 PER 1MG) As Ordered ONE (12:56)
[2020-12-31] MEDS ORDERED: propofoL 200 MG/20 ML VIAL As Ordered ONE (12:56)
[2020-12-31] MEDS ORDERED: fentaNYL 100 MCG/2 ML INJECTION As Ordered ONE (12:56)
[2020-12-31] MEDS ORDERED: KETOROLAC 60MG 2ML VIAL As Ordered ONE (12:56)
[2020-12-31] MEDS ORDERED: METOCLOPRAMIDE INJ 10MG/2ML VIAL (J2765 PER 1) As Ordered ONE (12:56)
[2020-12-31] MEDS ORDERED: dexameTHASONE 4 MG/ML 1ML VIAL (J1100 PER 1MG) As Ordered ONE (12:56)
[2020-12-31] MEDS ORDERED: SUGAMMADEX SODIUM 500 MG/5 ML VIAL (BRIDION) As Ordered ONE (12:56)
[2020-12-31] MEDS ORDERED: ONDANSETRON 4MG/2ML VIAL As Ordered ONE (12:56)
[2020-12-31] MEDS ORDERED: ROCURONIUM BROMIDE 50 MG/5 ML VIAL As Ordered ONE (12:56)
[2020-12-31] MEDS ORDERED: LIDOCAINE 2% 100MG/5ML SDV (FOR ANES.) As Ordered ONE (12:56)
[2020-12-31] MEDS ORDERED: ACETAMINOPHEN 1000MG 100ML IV BTL (OFIRMEV) (J0131 PER 10MG) As Ordered ONE (13:02)
[2020-12-31] MEDS ORDERED: DESFLURANE 240 ML INHALANT As Ordered ONE (13:07)
[2020-12-31] MEDS ORDERED: MEPERIDINE INJ 25 MG/ML VIAL (J2175) As Ordered ONE (13:45)
[2020-12-31] MEDS ORDERED: oxyCODONE 5MG TAB PO PRN (14:15)
[2020-12-31] MEDS ORDERED: METOCLOPRAMIDE INJ 10MG/2ML VIAL (J2765 PER 1) IV PRN (14:15)
[2020-12-31] MEDS ORDERED: fentaNYL 100 MCG/2 ML INJECTION IV PRN (14:15)
[2020-12-31] MEDS ORDERED: ONDANSETRON 4MG/2ML VIAL IV PRN (14:15)
[2020-12-31] MEDS ORDERED: LR 1,000 ML IV SCH (14:15)
[2020-12-31] MEDS ORDERED: PERCOCET 5MG/325MG TAB PO PRN (14:20)
[2020-12-31] MEDS ORDERED: MEPERIDINE INJ 25 MG/ML VIAL (J2175) IV PRN (14:30)
[2020-12-31 16:30] VITALS: BP 144/80
[2020-12-31] MEDS ORDERED: KETOROLAC 30 MG/ML 1ML VIAL IV SCH (19:00)
== END 2020-12-31 16:35 | disposition home or self-care (01) ==
LOC: M SDC 10:03
PROVIDERS: ATTEND Obstetrics & Gynecology
DX: Z30.2 Encounter for sterilization (principal); Z88.0 Allergy status to penicillin; Z91.010 Allergy to peanuts; K76.0 Fatty (change of) liver, not elsewhere classified; K21.9 Gastro-esophageal reflux disease without esophagitis; Z79.899 Other long term (current) drug therapy
CPT/HCPCS: 36415; 58661; 81025; 85027; 86850; 86900; 86901; 88302; J0131; J1100; J1885; J2175; J2250; J2405; J2765; J3010

== ENCOUNTER → 2021-01-02 | Outpatient (CLI) | payer OTHER ==
[~2021-01-02] MED LIST changes: +ISOVUE-300 61% 50ML VIAL As Ordered ONE; +LIDOCAINE 1% MDV 20ML VIAL As Ordered ONE; -LR 1,000 ML IV ONE; +OMEP-221 PO; -OMEP40CA5 PO; +PROHANCE 279.3MG/ML 5ML VIAL As Ordered ONE
--- NOTE | 2021-01-02 10:12 | REP ---
INDICATION: PAIN IN RT HIP. COMPARISON: None. TECHNIQUE: Pre and post joint injection 3T MRI of the right hip with MRI arthrogram was performed utilizing various sequences. The hip joint injection was performed by Brendan TARANGO. FINDINGS: The femoral heads are spherical in shape and symmetric in appearance. There is no evidence of a hip joint effusion. There is no frankly abnormal signal seen in the trochanteric tendono bursal region of either hip. There is no abnormal focal chondral or subchondral signal seen arising from the femoral or acetabular component of either hip. The sacroiliac joints are unremarkable. The cortical and marrow signal seen throughout the exam is within normal limits. There is no evidence of a mass or mass effect. The signal and morphologic appearance throughout the musculature is within normal limits. Dedicated post injection small [id number] magnified images of the right hip in all 3 planes shows a normal posterior inferior acetabular sublabral recess. This is also seen bilaterally on the non post injection large [id number] STIR coronal images. IMPRESSION: MRI findings are within normal limits. <Electronically signed by Marcos Poe > 01/02/21 2647
--- NOTE | 2021-01-02 16:35 | REP ---
INDICATION: PAIN IN RT HIP. COMPARISON: None. TECHNIQUE: The procedure was performed under the direction supervision of Dr. Daley. The benefits and risks including but not limited to pain, infection, bleeding and anaphylaxis were explained to the patient and informed consent was obtained. The right femoral neck was localized using fluoroscopic guidance. Skin was prepped and draped in a sterile fashion. 1% lidocaine was used as a local anesthetic. Using fluoroscopic guidance, and last image hold technology, a 22 gauge spinal needle was inserted and advanced to the femoral neck. 0.5 ml of Isovue-300 was injected to verify placement. 11 ml of a solution containing 20 ml of sterile saline and 0.15 ml of ProHance was injected into the joint. The needle was removed and the patient was taken to MRI for postprocedural imaging. The patient tolerated the procedure well and there were no immediate complications. Less than 6 seconds of fluoro time was utilized for this procedure. FINDINGS: None IMPRESSION: Fluoro guidance for right hip MRI arthrogram injection. <Electronically signed by Benigno Weeks > 01/02/21 1616 <Electronically signed by Jack Daley > 01/02/21 1633
== END ==
LOC: M RADPRO 06:34
PROVIDERS: ATTEND Orthopaedic Surgery
DX: M25.551 Pain in right hip (principal)
CPT/HCPCS: 27093; 73723; 77002; A9576; Q9967

== ENCOUNTER → 2021-03-27 | Outpatient (REF) | payer OTHER ==
[~2021-03-27] MED LIST changes: -ISOVUE-300 61% 50ML VIAL As Ordered ONE; -LIDOCAINE 1% MDV 20ML VIAL As Ordered ONE; -OMEP-221 PO; +OMEP40CA5 PO; -PROHANCE 279.3MG/ML 5ML VIAL As Ordered ONE
== END ==
LOC: M PLALAB 09:29
PROVIDERS: ATTEND Obstetrics & Gynecology
DX: Z12.4 Encounter for screening for malignant neoplasm of cervix (principal)

== ENCOUNTER → 2021-04-18 | Outpatient (CLI) | payer OTHER ==
[2021-04-18 08:25] LABS: BASO % 0.2 % (0.0-1.0); EOS # 0.2 10^3/uL (0.0-0.5); EOS % 2.2 % (0.0-3.0); HEMATOCRIT 42.9 % (36.0-47.0); HEMOGLOBIN 14.6 g/dl (12.0-15.5); LYMPH # 3.4 10^3/uL (1.5-5.0); LYMPH % 38.2 % (24.0-44.0); MEAN CORPUSCULAR HEMOGLOBIN 30.9 pg (27.0-33.0); MEAN CORPUSCULAR VOLUME 90.7 fl (80.0-96.0); MONO # 0.7 10^3/uL (0.0-0.8); MONO % 8.2 % (2.0-8.0); NEUTROPHILS # 4.5 10^3/uL (1.5-8.5); NEUTROPHILS % 50.8 % (36.0-66.0); PLATELET COUNT, AUTOMATED 219 10^3/uL (150-450); RED BLOOD COUNT 4.73 10^6/uL (4.00-5.40); WHITE BLOOD COUNT 8.9 10^3/uL (4.0-10.0)
[2021-04-18 08:58] LABS: ALBUMIN 3.8 GM/DL (3.2-5.2); ALT/SGPT 49 U/L (12-78); BILIRUBIN,TOTAL 0.3 MG/DL (0.2-1.0); BLOOD UREA NITROGEN 14 MG/DL (7-18); CALCIUM LEVEL 9.8 MG/DL (8.5-10.1); CARBON DIOXIDE LEVEL 29 MEQ/L (21-32); CHLORIDE LEVEL 109 MEQ/L (98-107); CHOLESTEROL LEVEL 170 MG/DL (<200); CHOLESTEROL RISK RATIO 4.358 (<5); FREE T4 0.84 NG/DL (0.76-1.46); GLOMERULAR FILTRATION RATE > 60.0 (>60); GLUCOSE, FASTING 97 MG/DL (70-100); HDL CHOLESTEROL 39 MG/DL (>40); LDL CHOLESTEROL 85 MG/DL (<100); NON-HDL-C 131 MG/DL; POTASSIUM SERUM 4.1 MEQ/L (3.5-5.1); SODIUM LEVEL 142 MEQ/L (136-145); TOTAL PROTEIN 7.1 GM/DL (6.4-8.2); TRIGLYCERIDES LEVEL 230 MG/DL (<150)
== END ==
LOC: M LAB 07:21
PROVIDERS: ATTEND Nurse Practitioner Adult Health
DX: G43.009 Migraine without aura, not intractable, without status migrainosus (principal)

== ENCOUNTER → 2021-10-18 | Outpatient (CLI) | payer OTHER ==
[~2021-10-18] MED LIST changes: -MICR1TAB18 PO; +NORE1TAB94 PO
[2021-10-18 12:26] LABS: ALBUMIN 3.7 GM/DL (3.2-5.2); ALT/SGPT 37 U/L (12-78); BILIRUBIN,TOTAL 0.3 MG/DL (0.2-1.0); BLOOD UREA NITROGEN 9 MG/DL (7-18); CALCIUM LEVEL 9.4 MG/DL (8.5-10.1); CARBON DIOXIDE LEVEL 30 MEQ/L (21-32); CHLORIDE LEVEL 107 MEQ/L (98-107); CHOLESTEROL LEVEL 142 MG/DL (<200); CHOLESTEROL RISK RATIO 3.086 (<5); CREATININE FOR GFR 0.76 MG/DL (0.55-1.30); FREE T4 0.86 NG/DL (0.76-1.46); GLOMERULAR FILTRATION RATE > 60.0 (>60); GLUCOSE, FASTING 92 MG/DL (70-100); HDL CHOLESTEROL 46 MG/DL (>40); LDL CHOLESTEROL 79 MG/DL (<100); NON-HDL-C 96 MG/DL; POTASSIUM SERUM 4.8 MEQ/L (3.5-5.1); SODIUM LEVEL 140 MEQ/L (136-145); TOTAL PROTEIN 7.2 GM/DL (6.4-8.2); TRIGLYCERIDES LEVEL 87 MG/DL (<150)
== END ==
LOC: M LAB 09:20
PROVIDERS: ATTEND Nurse Practitioner Adult Health
DX: E78.1 Pure hyperglyceridemia (principal); R94.6 Abnormal results of thyroid function studies; Z13.220 Encounter for screening for lipoid disorders

== ENCOUNTER → 2021-12-27 | Outpatient (CLI) | payer OTHER ==
[2021-12-27 09:36] LABS: EOS # 0.1 10^3/uL (0.0-0.5); EOS % 2.4 % (0.0-3.0); HEMOGLOBIN 12.5 g/dl (12.0-15.5); LYMPH # 1.6 10^3/uL (1.5-5.0); LYMPH % 29.2 % (24.0-44.0); MEAN CORPUSCULAR HEMOGLOBIN 28.1 pg (27.0-33.0); MEAN CORPUSCULAR HGB CONC 32.1 g/dl (32.0-36.5); MEAN CORPUSCULAR VOLUME 87.6 fl (80.0-96.0); MONO # 0.5 10^3/uL (0.0-0.8); MONO % 9.4 % (2.0-8.0); NEUTROPHILS # 3.2 10^3/uL (1.5-8.5); NEUTROPHILS % 58.6 % (36.0-66.0); PLATELET COUNT, AUTOMATED 229 10^3/uL (150-450); RED BLOOD COUNT 4.45 10^6/uL (4.00-5.40); WHITE BLOOD COUNT 5.5 10^3/uL (4.0-10.0)
[2021-12-27 10:27] LABS: ALBUMIN 3.7 G/DL (3.2-5.2); ALT/SGPT 24 U/L (7.0-40); BILIRUBIN,TOTAL 0.3 MG/DL (0.3-1.2); BLOOD UREA NITROGEN 9 MG/DL (9-23); CARBON DIOXIDE LEVEL 26 MMOL/L (20-31); CHLORIDE LEVEL 107 MMOL/L (98-107); GLOMERULAR FILTRATION RATE > 60.0 (>60); GLUCOSE, FASTING 97 MG/DL (60-100); POTASSIUM SERUM 4.2 MMOL/L (3.5-5.1); SODIUM LEVEL 141 MMOL/L (136-145); TOTAL PROTEIN 6.4 G/DL (5.7-8.2)
[2021-12-30 17:11] LABS: H PYLORI SERUM QUANT IGA <9.0 units (0.0-8.9); H PYLORI SERUM QUANT IGM <9.0 units (0.0-8.9); H PYLORI SERUM QUANT IgG ABY 0.22 (0.00-0.79)
== END ==
LOC: M LAB 08:49
PROVIDERS: ATTEND Nurse Practitioner Adult Health
DX: K25.9 Gastric ulcer, unspecified as acute or chronic, without hemorrhage or perforation (principal)

== ENCOUNTER → 2022-03-02 | Outpatient (CLI) | payer OTHER ==
[~2022-03-02] MED LIST changes: +SUCR1TAB56
== END ==
LOC: M LABSMTC 08:59
PROVIDERS: ATTEND Anesthesiology
DX: Z01.812 Encounter for preprocedural laboratory examination (principal); Z11.52 Encounter for screening for COVID-19

== ENCOUNTER → 2022-03-04 | Outpatient (REF) | payer OTHER | LOC: M LAB REF 17:01 | PROVIDERS: ATTEND Nurse Practitioner Adult Health | DX: R30.0 Dysuria (principal) ==

== ENCOUNTER 2022-03-05 11:59 | Day surgery (SDC) | payer OTHER ==
[~2022-03-05] VITALS: Ht 154.9 cm; Wt 83.9 kg
[~2022-03-05 11:59] MED LIST changes: +NS 1,000 ML IV ONE
[2022-03-05] MEDS ORDERED: propofoL 200 MG/20 ML VIAL As Ordered ONE (13:57)
[2022-03-05] MEDS ORDERED: LIDOCAINE 2% 100MG/5ML SDV (FOR ANES.) As Ordered ONE (13:57)
[2022-03-05 14:37] VITALS: BP 157/72
== END 2022-03-05 14:47 | disposition home or self-care (01) ==
LOC: M OPP 11:59
PROVIDERS: ATTEND Internal Medicine Gastroenterology
DX: K22.89 Other specified disease of esophagus (principal); K31.89 Other diseases of stomach and duodenum; Z79.2 Long term (current) use of antibiotics; Z79.899 Other long term (current) drug therapy; Z88.0 Allergy status to penicillin; Z88.1 Allergy status to other antibiotic agents; Z88.8 Allergy status to other drugs, medicaments and biological substances; Z91.018 Allergy to other foods; K76.0 Fatty (change of) liver, not elsewhere classified

== ENCOUNTER → 2022-04-03 | Outpatient (CLI) | payer OTHER ==
[~2022-04-03] MED LIST changes: -NS 1,000 ML IV ONE
== END ==
LOC: M RAD 03-13 09:27
PROVIDERS: ATTEND Internal Medicine Gastroenterology
DX: R16.0 Hepatomegaly, not elsewhere classified (principal); R10.13 Epigastric pain

== ENCOUNTER → 2022-04-11 | Outpatient (CLI) | payer OTHER ==
[2022-04-11 08:30] LABS: BASO % 0.3 % (0.0-1.0); EOS # 0.2 10^3/uL (0.0-0.5); EOS % 2.6 % (0.0-3.0); HEMATOCRIT 39.2 % (36.0-47.0); HEMOGLOBIN 12.5 g/dl (12.0-15.5); LYMPH # 2.5 10^3/uL (1.5-5.0); LYMPH % 37.4 % (24.0-44.0); MEAN CORPUSCULAR HEMOGLOBIN 27.5 pg (27.0-33.0); MEAN CORPUSCULAR HGB CONC 31.9 g/dl (32.0-36.5); MEAN CORPUSCULAR VOLUME 86.2 fl (80.0-96.0); MONO # 0.5 10^3/uL (0.0-0.8); NEUTROPHILS # 3.4 10^3/uL (1.5-8.5); NEUTROPHILS % 51.5 % (36.0-66.0); PLATELET COUNT, AUTOMATED 248 10^3/uL (150-450); RED BLOOD COUNT 4.55 10^6/uL (4.00-5.40); WHITE BLOOD COUNT 6.6 10^3/uL (4.0-10.0)
[2022-04-11 09:02] LABS: THYROID STIMULATING HORMONE 1.773 uIU/ML (0.55-4.78)
[2022-04-11 09:03] LABS: FREE T4 0.83 NG/DL (0.89-1.76)
[2022-04-11 09:14] LABS: ALBUMIN 3.7 G/DL (3.2-5.2); ALKALINE PHOSPHATASE 100 U/L (46-116); ALT/SGPT 26 U/L (7.0-40); AST/SGOT 19 U/L (<34); BILIRUBIN,TOTAL 0.4 MG/DL (0.3-1.2); BLOOD UREA NITROGEN 10 MG/DL (9-23); CALCIUM LEVEL 9.4 MG/DL (8.5-10.1); CARBON DIOXIDE LEVEL 31 MMOL/L (20-31); CHLORIDE LEVEL 106 MMOL/L (98-107); CHOLESTEROL LEVEL 160 MG/DL (<200); CREATININE FOR GFR 0.82 MG/DL (0.55-1.30); GLOMERULAR FILTRATION RATE > 60.0 (>60); GLUCOSE, FASTING 97 MG/DL (60-100); HDL CHOLESTEROL 45.6 MG/DL (>40); LDL CHOLESTEROL 92.8 MG/DL (<100); NON-HDL-C 114 MG/DL; POTASSIUM SERUM 4.4 MMOL/L (3.5-5.1); SODIUM LEVEL 141 MMOL/L (136-145); TOTAL PROTEIN 6.8 G/DL (5.7-8.2); TRIGLYCERIDES LEVEL 108 MG/DL (<150)
== END ==
LOC: M LAB 07:57
PROVIDERS: ATTEND Family Medicine
DX: Z13.0 Encounter for screening for diseases of the blood and blood-forming organs and certain disorders involving the immune mechanism (principal); Z13.29 Encounter for screening for other suspected endocrine disorder; E78.5 Hyperlipidemia, unspecified

== ENCOUNTER → 2022-10-09 | Outpatient (REF) | payer OTHER | LOC: M LAB REF 17:11 | PROVIDERS: ATTEND Physician Assistant | DX: N39.0 Urinary tract infection, site not specified (principal) ==

== ENCOUNTER → 2022-10-31 | Outpatient (CLI) | payer OTHER | LOC: M RAD 13:52 | PROVIDERS: ATTEND Nurse Practitioner Adult Health | DX: M79.604 Pain in right leg (principal) ==

== ENCOUNTER → 2022-11-12 | Outpatient (CLI) | payer MEDICAID, OTHER, SELFPAY | LOC: M RAD 14:38 | PROVIDERS: ATTEND Nurse Practitioner Adult Health | DX: M25.562 Pain in left knee (principal) ==

== ENCOUNTER 2022-11-27 22:04 | Emergency (ER) | payer OTHER, SELFPAY ==
[~2022-11-27] VITALS: Ht 154.9 cm; Wt 81.4 kg
[2022-11-27 22:05] VITALS: TEMP 99.1
[2022-11-27] MEDS ORDERED: diphenhydrAMINE 50MG/ML VIAL IV ONE (22:45)
[2022-11-27] MEDS ORDERED: METOCLOPRAMIDE INJ 10MG/2ML VIAL IV ONE (22:45)
[2022-11-27] MEDS ORDERED: ACETAMINOPHEN 500 MG TAB PO ONE (22:45)
[2022-11-27] MEDS ORDERED: NS 1,000 ML IV ONE (22:45)
[2022-11-27] MEDS ORDERED: KETOROLAC 30 MG/ML 1ML VIAL IV ONE (22:45)
[2022-11-27 23:06] LABS: BASO % 0.1 % (0.0-1.0); EOS # 0.1 10^3/uL (0.0-0.5); EOS % 1.1 % (0.0-3.0); HEMATOCRIT 36.2 % (36.0-47.0); HEMOGLOBIN 11.4 g/dl (12.0-15.5); LYMPH # 3.1 10^3/uL (1.5-5.0); LYMPH % 31.5 % (24.0-44.0); MEAN CORPUSCULAR HEMOGLOBIN 25.3 pg (27.0-33.0); MEAN CORPUSCULAR HGB CONC 31.5 g/dl (32.0-36.5); MEAN CORPUSCULAR VOLUME 80.3 fl (80.0-96.0); MONO # 0.7 10^3/uL (0.0-0.8); MONO % 7.1 % (2.0-8.0); NEUTROPHILS # 5.9 10^3/uL (1.5-8.5); PLATELET COUNT, AUTOMATED 284 10^3/uL (150-450); RED BLOOD COUNT 4.51 10^6/uL (4.00-5.40); WHITE BLOOD COUNT 9.8 10^3/uL (4.0-10.0)
[2022-11-27 23:39] LABS: ERYTHROCYTE SEDIMENTATION RATE 34 mm/hr (0-20)
[2022-11-28] MEDS ORDERED: MAG SULF 1GM/100ML (MAG RUN) 1 GM in IV 1 EA IV ONE ×2
[2022-11-28 00:15] VITALS: BP 129/79; O2SAT 96
[2022-11-28] MEDS ORDERED: NORCO 5/325MG TABLET (HOME DOSE PACK) PO ONE (01:10)
[2022-11-28] MEDS ORDERED: NEUR100C PO (01:12)
[2022-11-28] MEDS ORDERED: REGL10TA6 PO (01:12)
[2022-11-28] MEDS ORDERED: KETO10TAB PO (01:12)
[2022-11-28 13:36] LABS: BLOOD UREA NITROGEN 8 MG/DL (7-21); CREATININE FOR GFR 0.8 MG/DL (0.7-1.5); GLUCOSE, FASTING 114 MG/DL (70-99)
[2022-11-28 13:37] LABS: CALCIUM LEVEL 9.6 MG/DL (8.4-10.2); CARBON DIOXIDE LEVEL 24 MEQ/L (22-30); CHLORIDE LEVEL 103 MEQ/L (98-107); POTASSIUM SERUM 3.3 MEQ/L (3.6-5.0); SODIUM LEVEL 140 MEQ/L (134-153)
[2022-11-28 13:38] LABS: GLOMERULAR FILTRATION RATE > 60.0 (>60)
== END 2022-11-28 01:27 | disposition home or self-care (01) ==
LOC: M ED 22:04
DX: R51.9 Headache, unspecified (principal); Z88.0 Allergy status to penicillin; Z88.8 Allergy status to other drugs, medicaments and biological substances; Z91.010 Allergy to peanuts
CPT/HCPCS: 70450; 80047; 80048; 84702; 85025; 85652; 96365; 96366; 96375; 99284; J1100; J1200; J1885; J2765; J3475

== ENCOUNTER → 2022-12-07 | Outpatient (CLI) | payer OTHER ==
[~2022-12-07] MED LIST changes: +KETO10TAB PO; +NEUR100C PO; +REGL10TA6 PO
[2022-12-07 16:18] LABS: BLOOD UREA NITROGEN 8 MG/DL (9-23); CALCIUM LEVEL 9.2 MG/DL (8.5-10.1); CARBON DIOXIDE LEVEL 28 MMOL/L (20-31); CHLORIDE LEVEL 107 MMOL/L (98-107); CREATININE FOR GFR 0.79 MG/DL (0.55-1.30); GLOMERULAR FILTRATION RATE > 60.0 (>60); GLUCOSE, FASTING 96 MG/DL (60-100); POTASSIUM SERUM 4.2 MMOL/L (3.5-5.1); SODIUM LEVEL 142 MMOL/L (136-145)
[2022-12-07 16:21] LABS: FREE T4 0.87 NG/DL (0.89-1.76); THYROID STIMULATING HORMONE 1.919 uIU/ML (0.55-4.78)
== END ==
LOC: M LAB 15:24
PROVIDERS: ATTEND Nurse Practitioner Adult Health
DX: I10 Essential (primary) hypertension (principal)

== ENCOUNTER 2024-08-21 21:32 | Emergency (ER) | payer OTHER ==
[~2024-08-21] VITALS: Ht 154.9 cm; Wt 75.2 kg
[2024-08-22 04:59] LABS: BASO # 0.0 10^3/uL (0.0-0.2); BASO % 0.2 % (0.0-1.0); EOS # 0.2 10^3/uL (0.0-0.5); EOS % 2.5 % (0.0-3.0); LYMPH # 2.6 10^3/uL (1.5-5.0); LYMPH % 31.0 % (24.0-44.0); MONO # 0.6 10^3/uL (0.0-0.8); MONO % 7.6 % (2.0-8.0); NEUTROPHILS # 4.9 10^3/uL (1.5-8.5); NEUTROPHILS % 58.5 % (36.0-66.0); PLATELET COUNT, AUTOMATED 272 10^3/uL (150-450)
[2024-08-22 05:35] LABS: CK-MB VALUE MASS 1.4 NG/ML (<3.6)
[2024-08-22 05:36] LABS: CALCIUM LEVEL 9.4 MG/DL (8.5-10.1); CARBON DIOXIDE LEVEL 28 MMOL/L (20-31); CHLORIDE LEVEL 106 MMOL/L (98-107); CREATININE FOR GFR 0.79 MG/DL (0.55-1.30); GLOMERULAR FILTRATION RATE > 90.0 (>60); POTASSIUM SERUM 4.0 MMOL/L (3.5-5.1); SODIUM LEVEL 144 MMOL/L (136-145)
[2024-08-22 05:40] LABS: CPK CREATINE PHOSPHOKINASE 364 U/L (34-145); MB/CK RELATIVE INDEX 0.38 (< OR =4)
[2024-08-22] MEDS: NS (Normal Saline) 0.9% 1,000 ML IV ONE (05:55)
[2024-08-22] MEDS: diphenhydrAMINE 50 MG/ML VIAL IV ONE (05:55)
[2024-08-22] MEDS: KETOROLAC 30 MG/ML 1 ML VIAL IV ONE (05:56)
[2024-08-22] MEDS ORDERED: IBUP200C28 PO (07:39)
[2024-08-22] MEDS ORDERED: ACET-897 PO (07:39)
[2024-08-22] MEDS ORDERED: EXCETAB32 PO (07:39)
[2024-08-22] MEDS ORDERED: HOME MED LIST COMPLETE! XX SCH (07:40)
[2024-08-22 08:10] VITALS: BP 122/79; TEMP 97.6; O2SAT 99
== END 2024-08-22 08:14 | disposition home or self-care (01) ==
LOC: M ED 21:32
DX: G43.909 Migraine, unspecified, not intractable, without status migrainosus (principal); I45.10 Unspecified right bundle-branch block; Z88.0 Allergy status to penicillin; Z88.8 Allergy status to other drugs, medicaments and biological substances; Z91.010 Allergy to peanuts; Z79.1 Long term (current) use of non-steroidal anti-inflammatories (NSAID)
CPT/HCPCS: 70450; 71045; 80048; 82550; 82553; 84484; 85025; 93005; 93041; 94760; 96361; 96374; 96375; 99285; J1200; J1885; J2765